=== PATIENT | female | born 1955 | race Caucasian/White ===

== ENCOUNTER 2019-05-18 15:13 | Emergency (ER) | payer BC ==
[2019-05-18] MEDS ORDERED: AMPICILLIN SOD/SULBACTAM 3 GM VIAL IV ONE (16:45)
[2019-05-18] MEDS ORDERED: MORPHINE SULFATE 10 MG/ML INJ IV ONE (16:47)
[2019-05-18] MEDS ORDERED: ONDANSETRON HCL INJ/PF 4 MG/2 ML SDV IV ONE (16:47)
[2019-05-18] MEDS ORDERED: DEXTROSE 5%-1/2 NORMAL SALINE 1,000 ML IV ONE (16:53)
--- NOTE | 2019-05-18 17:00 | ER Document Report ---
ED Animal Bite - General Chief Complaint: Dog Bite Stated Complaint: DOG BITE/RIGHT FOREARM Time Seen by Provider: 05/18/19 15:55 Notes: 64-year-old female to the emergency department for evaluation of dog bite. Patient was walking when an unknown dog came out of nowhere and attacked her. Extensive bites to the right arm and right leg. Patient was able to contact the family member. The dog ran away. Family member is a seismology technical officer. She was brought immediately to the ER. No shortness of breath. No other issues. - HPI Location of injury: LLE, RUE, RLE Onset: Just prior to arrival Quality of pain: Throbbing Pain Level: 5 Severity: Severe Context of attack: "Unprovoked" attack Type of animal: Dog Appearance of animal: Unknown Animal's immunizations: Unknown Animal captured or known: No - Related Data Allergies/Adverse Reactions: Sulfa (Sulfonamide Antibiotics) Allergy (Verified 05/18/19 16:18) Past Medical History - General Information source: Patient - Social History Smoking Status: Unknown if Ever Smoked Frequency of alcohol use: Occasional Drug Abuse: None Lives with: Family Family History: Reviewed & Not Pertinent Patient has suicidal ideation: No Patient has homicidal ideation: No Renal/ Medical History: Denies: Hx Peritoneal Dialysis Review of Systems - Review of Systems Notes: Constitutional: denies: Chills, Diaphoresis, Fever, Malaise, Weakness EENT: denies: Eye discharge, Blurred vision, Tearing, Double vision, Nose congestion, Nose discharge, Throat swelling, Mouth pain Cardiovascular: denies: Palpitations, Heart racing, Orthopnea, Dyspnea, Chest pain Respiratory: denies: Cough, Hurts to breathe, Wheezing, Shortness of breath Gastrointestinal: denies: Abdominal pain, Diarrhea, Nausea, Vomiting, Black stools, bright red blood in stool Genitourinary: denies: Burning, Dysuria, Discharge, Frequency, Flank pain, Hematuria Musculoskeletal: Pain in the right upper extremity, pain in the right lower extremity, lacerations. Hematologic/Lymphatic: denies: Anemia, Easy bleeding, Easy bruising, Blood clots Neurological/Psychological: denies: Confusion, Dementia, Depression, Loss of consciousness Skin: Lacerations to the right arm, right lower extremity, multiple puncture wounds. Physical Exam - Vital signs Vitals: Temp Pulse Resp BP Pulse Ox 98.0 F 66 18 137/77 H 100 05/18/19 15:44 05/18/19 15:44 05/18/19 15:44 05/18/19 15:44 05/18/19 15:44 Interpretation: Normal - General General appearance: Appears well, Alert - HEENT Head: Normocephalic, Atraumatic Eyes: Normal Pupils: PERRL - Respiratory Respiratory status: No respiratory distress Chest status: Nontender Breath sounds: Normal Chest palpation: Normal - Cardiovascular Rhythm: Regular Heart sounds: Normal auscultation Murmur: No - Abdominal Inspection: Normal Distension: No distension Bowel sounds: Normal Tenderness: Nontender Organomegaly: No organomegaly - Back Back: Normal, Nontender - Extremities General upper extremity: Other - Extensive maceration to the right upper extremity. Approximately 20 cm worth of lacerations. Exposed muscle. Bleeding is controlled. Extensive tissue damage. Puncture wound to the left dorsal hand. General lower extremity: Other - Extensive laceration to the right lower extremity the medial aspect distal tib-fib and ankle area. Several lacerations are present. The longest one is approximately 4 cm. There are 2 other puncture lacerations to the right medial ankle area that measure approximately 1 cm each. There is a puncture wound present above the left knee. Abrasions to the left thigh.. No: Griselda's sign - Neurological Neuro grossly intact: Yes Cognition: Normal Orientation: AAOx4 Bradford Coma Scale Eye Opening: Spontaneous Bradford Coma Scale Verbal: Oriented Bradford Coma Scale Motor: Obeys Commands Bradford Coma Scale Total: 15 Speech: Normal Motor strength normal: LUE, RUE, LLE, RLE Sensory: Normal - Psychological Associated symptoms: Normal affect, Normal mood - Skin Skin Temperature: Warm Skin Moisture: Dry Skin Color: Other - Extensive lacerations as described in the extremity exam. Course - Re-evaluation Re-evalutation: 05/18/19 17:19 Patient has extensive complex lacerations to the right upper extremity and right lower extremity with some puncture wounds present in the left hand. IV antibiotics have been started. Due to the concern for rabies rabies prophylaxis therapy was begun. Immediate surgical intervention is needed as these wounds are too large to treat topically with lidocaine so she would need general anesthesia and a qualified surgeon to repair these lacerations. Due to limitations in our OR's and current surgeries in process with 2 other surgeries ahead of this patient I am going to attempt to get patient accepted for a trauma transfer so that she can get the help that she needs immediately. In the event that our surgeons become available we can always change course of action but I do not want to delay patient's definitive care as this would be wrong. I have spoken with Dr. Ruiz at [facility]. He has graciously agreed to accept patient as a trauma transfer. Pending immediate transfer unless our surgical services are immediately available here. Patient is comfortable with this plan. Antibiotics, fluids, n.p.o. and x-rays have been ordered. Labs have been ordered. Patient remained stable at this time. 05/18/19 17:37 Dr. Bolanos with general surgery was consulted and he agrees that this would be the best thing to do in order to get her the definitive care based on our limited availability and services at this time. 05/18/19 17:38 Laboratory 05/18/19 05/18/19 16:06 16:06 WBC 6.2 RBC 4.47 Hgb 12.7 Hct 38.7 MCV 87 MCH 28.5 MCHC 32.9 RDW 13.6 Plt Count 209 Seg Neutrophils % 70.2 Lymphocytes % 19.9 Monocytes % 6.8 Eosinophils % 2.6 Basophils % 0.5 Absolute Neutrophils 4.3 Absolute Lymphocytes 1.2 Absolute Monocytes 0.4 Absolute Eosinophils 0.2 Absolute Basophils 0.0 Sodium 139.0 Potassium 4.6 Chloride 104 Carbon Dioxide 26 Anion Gap 9 BUN 30 H Creatinine 0.87 Est GFR ( Amer) > 60 Est GFR (Non-Af Amer) > 60 Glucose 107 Calcium 10.0 Total Bilirubin 0.8 Direct Bilirubin 0.6 H Neonat Total Bilirubin Not Reportable Neonat Direct Bilirubin Not Reportable Neonat Indirect Bili Not Reportable AST 32 ALT 34 Alkaline Phosphatase 49 Total Protein 6.7 Albumin 4.5 05/18/19 17:58 Forearm X-Ray 05/18/19 17:19 IMPRESSION: EXTENSIVE SOFT TISSUE INJURY. NO RADIOPAQUE FOREIGN BODY. NO FRACTURE OR OTHER BONY FINDINGS. - Vital Signs Vital signs: Temp Pulse Resp BP Pulse Ox 98.0 F 66 18 137/77 H 100 05/18/19 15:44 05/18/19 15:44 05/18/19 15:44 05/18/19 15:44 05/18/19 15:44 - Laboratory Result Diagrams: 05/18/19 16:06 05/18/19 16:06 Laboratory results interpreted by me: 05/18/19 05/18/19 16:06 16:06 APTT 21.3 L BUN 30 H Direct Bilirubin 0.6 H - EKG Interpretation by Me EKG shows normal: Sinus rhythm, [place], Intervals, QRS Complexes, ST-T Waves Critical Care Note - Critical Care Note Total time excluding time spent on procedures (mins): 35 Comments: Rapid assessment, coordination of transfer, Discharge - Discharge Clinical Impression: Dog bite of extremity, Skin maceration Condition: Good Disposition: [facility]
[2019-05-18] MEDS ORDERED: RABIES VACCINE (PCEC)/PF 2.5 UNIT/1 ML KIT IM ONE (17:10)
[2019-05-18] MEDS ORDERED: RABIES IMMUNE GLOBULIN INJ/PF 300 UNIT/2 ML SDV IM ONE ×2 (17:10→17:16)
[2019-05-18 17:26] LABS: ABSOLUTE EOSINOPHILS # (AUTO) 0.2 10^3/uL (0.0-0.6); ABSOLUTE LYMPHOCYTES (AUTO) 1.2 10^3/uL (0.5-4.7); ABSOLUTE MONOCYTES (AUTO) 0.4 10^3/uL (0.1-1.4); ABSOLUTE NEUT (AUTO) 4.3 10^3/uL (1.7-8.2); BASOPHILS % (AUTO) 0.5 % (0-2); EOSINOPHILS % (AUTO) 2.6 % (0-6); HEMATOCRIT 38.7 % (36.0-47.0); HEMOGLOBIN 12.7 g/dL (12.0-15.5); LYMPHOCYTES % (AUTO) 19.9 % (13-45); MEAN CORPUSCULAR HEMOGLOBIN 28.5 pg (27.0-33.4); MEAN CORPUSCULAR HGB CONC 32.9 g/dL (32.0-36.0); MEAN CORPUSCULAR VOLUME 87 fl (80-97); MONOCYTES % (AUTO) 6.8 % (3-13); PLATELET COUNT 209 10^3/uL (150-450); RED BLOOD COUNT 4.47 10^6/uL (3.72-5.28); RED CELL DISTRIBUTION WIDTH 13.6 % (11.5-14.0); SEGMENTED NEUTROPHILS % (AUTO) 70.2 % (42-78); TOTAL CELLS COUNTED % (AUTO) 100 %; WHITE BLOOD COUNT 6.2 10^3/uL (4.0-10.5)
[2019-05-18 17:32] LABS: ALANINE AMINOTRANSFERASE 34 U/L (9-52); ALBUMIN 4.5 g/dL (3.5-5.0); ALKALINE PHOSPHATASE 49 U/L (38-126); ANION GAP 9 (5-19); ASPARTATE AMINO TRANSFERASE 32 U/L (14-36); BILIRUBIN,DIRECT 0.6 mg/dL (0.0-0.4); BILIRUBIN,TOTAL 0.8 mg/dL (0.2-1.3); BLOOD UREA NITROGEN 30 mg/dL (7-20); CARBON DIOXIDE 26 mmol/L (22-30); CHLORIDE 104 mmol/L (98-107); GLUCOSE 107 mg/dL (75-110); POTASSIUM 4.6 mmol/L (3.6-5.0); TOTAL PROTEIN 6.7 g/dL (6.3-8.2)
[2019-05-18 17:40] LABS: INTERNATIONAL RATION (INR) 0.95; PROTHROMBIN TIME 12.7 SEC (11.4-15.4)
[2019-05-18 17:41] LABS: PARTIAL THROMBOPLASTIN TIME 21.3 SEC (23.5-35.8)
--- NOTE | 2019-05-18 17:54 | RADIOLOGY REPORT (SQ) ---
EXAM DESCRIPTION: FOREARM RIGHT COMPLETED DATE/TIME: 05/18/2019 5:43 pm REASON FOR STUDY: dogbite COMPARISON: None. NUMBER OF VIEWS: Two views. TECHNIQUE: Two radiographic images acquired of the right forearm, including elbow and wrist in at le ast one projection. LIMITATIONS: None. FINDINGS: MINERALIZATION: Normal. BONES: No acute fracture. No worrisome bone lesions. SOFT TISSUES: Extensive soft tissue injury. No radiopaque foreign body. OTHER: No other significant finding. IMPRESSION: EXTENSIVE SOFT TISSUE INJURY. NO RADIOPAQUE FOREIGN BODY. NO FRACTURE OR OTHER BONY FI NDINGS. TECHNICAL DOCUMENTATION: JOB ID: [id number] RE2- All Rights Reserved Reading location - IP/workstation name: [email or web address]
[2019-05-18 19:21] VITALS: BP 150/96
--- NOTE | 2019-05-19 08:23 | EKG REPORT ---
SEVERITY:- ABNORMAL ECG - SINUS RHYTHM LEFT AXIS DEVIATION NONSPECIFIC T ABNORMALITIES, INFERIOR LEADS : Confirmed by: Armando Peralta MD 19-May-2019 08:22:22
== END 2019-05-18 19:40 | disposition short-term general hospital (02) ==
LOC: ER 15:13
DX: S41.151A Open bite of right upper arm, initial encounter (principal); W54.0XXA Bitten by dog, initial encounter
CPT/HCPCS: 93005; 99285; 96372; 96361; 90471; 96375; 96365; 36415; 85025; 85610; 85730; 80053; 73090; 90675; 90376; 93010; J0295; J2270; J2405